=== PATIENT | female | born 2000 | race Caucasian/White ===

== ENCOUNTER 2020-03-30 12:08 | Outpatient (CLI) | payer OTHER, BC, SELFPAY ==
--- NOTE | ~2020-03-30 | XR_ITS ---
EXAMINATION: XR chest 2V DATE: 03/30/2020 12:41 INDICATION: Left chest pain and cough TECHNIQUE: PA and lateral views of the chest are obtained. COMPARISON: 02/16/2014 FINDINGS: The lungs are free of acute opacities. There is no pleural effusion or pneumothorax. The ca rdiomediastinal silhouette is normal. The visualized bones and soft tissues are unremarkable. IMPRESSION: 1. No acute cardiopulmonary abnormality. Reviewed, dictated and finalized at location B.
== END 2020-03-30 12:09 | disposition home or self-care (01) ==
LOC: CHSIMG 12:13
PROVIDERS: PCP Internal Medicine; Visit Provider Internal Medicine
DX: R07.89 Other chest pain (principal); R05 Cough
CPT/HCPCS: 71046

== ENCOUNTER 2022-04-28 13:01 | Emergency (ER) | payer OTHER, SELFPAY ==
[2022-04-28 13:20] VITALS: BP 133/90; PULSE 102; RESP 12; TEMP 37.5; O2SAT 100
--- NOTE | 2022-04-28 13:20 | ED.URI ---
HPI - URI/Sore Throat General Chief Complaint: Ear Stated Complaint: sore throat left ear pain Time Seen by Provider: 04/28/22 13:31 Source: patient and RN notes reviewed Mode of arrival: ambulatory Limitations: no limitations History of Present Illness HPI Narrative: 21-year-old female presents to the [facility] with complaints of sore throat and left ear pain since Monday. Has reported taking 2 COVID test prior to arrival which she reports is negative. Denies any past medical history. Related Data Home Medications Medication Instructions Recorded Confirmed escitalopram oxalate 20 mg tablet 20 mg PO DAILY 04/28/22 04/28/22 montelukast 10 mg tablet 10 mg PO DAILY 04/28/22 04/28/22 Allergies Allergy/AdvReac Type Severity Reaction Status Date / Time No Known Allergies Allergy Verified 04/28/22 13:20 Review of Systems Review of Systems: All systems reviewed & are unremarkable except as noted in HPI and below Constitutional: Constitutional: Reports no additional constitutional complaints, Denies chills and Denies fever(s) Eyes: Eyes: Reports no additional eye complaints ENT: Reports as per HPI, Reports otalgia and Reports sore throat Cardiovascular: Cardiovascular: Reports no additional cardiovascular complaints Respiratory: Respiratory: Reports no additional respiratory complaints Gastrointestinal: Gastrointestinal: Reports no additional gastrointestinal complaints Musculoskeletal: Musculoskeletal: Reports no additional musculoskeletal complaints Integumentary/Breasts: Skin/Breast: Reports system reviewed and no additional complaints, except as docu Neurologic: Reports system reviewed and no additional complaints, except as documented Psychiatric: Psychiatric: Reports no additional psychiatric complaints Allergic/Immunologic: Allergic/Immunologic: Reports no additional allergic/immunologic complaints PMFSH Past Medical History Medical History Patient denies medical problems Surgical History Surgical History (Updated 04/28/22 @ 18:26 by Екатерина Del Rio APRN) No pertinent past surgical history Social History Social History (Updated 04/28/22 @ 18:26 by Екатерина Del Rio APRN) Gender identity (if verbalized by the patient): Female Comments At the time of my signature, I reviewed and agree with the nursing past medical, surgical, social, and family history. There is no relevant family history pertinent to the patient complaint. Exam Const: General: healthy appearing, no acute distress and alert Nutritional Appearance: well nourished Orientation/consciousness: patient oriented x3 Limitations: no limitations HENMT: Head: normal to inspection Ears: external ears normal, TM's normal bilaterally and EAC's normal General nose exam: Normal external nose present and Normal nares present Face and sinus: normal facial exam Mouth: Yes Normal oral and palatal mucosa present, Yes lip normal and Yes moist mucous membranes Throat: posterior oropharynx normal and uvula midline Eyes: General: appearance normal, both eyes and all related structures Conjunctivae: conjunctivae normal Pupils: Equal, round and reactive pupils present Neck: Neck: normal visual inspection, no lymphadenopathy and no meningeal signs Chest: Chest palpation & inspection: normal inspection of the chest Resp: Effort & Inspection: normal respiratory effort and no use of accessory muscles Auscultation: clear to auscultation bilaterally, no crackles, no rales, no rhonchi and no wheezes Cardio: Rate: regular rate Rhythm: regular rhythm Back/Spine/Pelvis: Cervical Spine: normal cervical lordosis Thoracic/Lumbar Spine: thoracic and lumbar spine normal to inspection Skin: General skin exam: normal color Rashes: no rashes Wounds: no wounds Neuro: General: patient oriented x3, moves all extremities, no meningeal signs and no focal motor deficits Cranial nerves: Yes Equal, round a
== END 2022-04-28 13:42 | disposition home or self-care (01) ==
PROVIDERS: Emergency Provider Nurse Practitioner; PCP Internal Medicine
DX: J06.9 Acute upper respiratory infection, unspecified (principal)
CPT/HCPCS: 87081; 87880; 99213; G0463

== ENCOUNTER 2022-09-23 10:08 | Outpatient (CLI) | payer OTHER, SELFPAY ==
[2022-09-23 11:56] LABS: Influenza A QL RT-PCR Negative (Negative); Influenza B QL RT-PCR Negative (Negative); SARS-CoV-2 RNA PCR Positive (Negative)
== END 2022-09-23 10:09 | disposition home or self-care (01) ==
LOC: CHSLAB 10:13
PROVIDERS: PCP Internal Medicine; Visit Provider Nurse Practitioner Family
DX: U07.1 COVID-19 (principal); J06.9 Acute upper respiratory infection, unspecified; J02.9 Acute pharyngitis, unspecified
CPT/HCPCS: 87636

== ENCOUNTER 2022-11-29 13:55 | Outpatient (CLI) | payer OTHER, SELFPAY ==
--- NOTE | ~2022-11-29 | XR_ITS ---
EXAMINATION: XR chest 2V 11/29/2022 14:34 INDICATION: Chest pain. PROCEDURE: 2 view chest COMPARISON: 03/30/2020 FINDINGS: The lungs are clear. The cardiomediastinal silhouette is within normal limits. There are no pleural effusions. There is no pneumothorax suspected. IMPRESSION: 1: NO ACUTE CARDIOPULMONARY DISEASE. Reviewed, dictated and finalized at location A.
[2022-11-29 14:24] LABS: Basophils Absolute Auto 0.05 K/mm3 (0.00-0.10); Basophils Percent Auto 0.5 % (0.0-1.0); Eosinophils Absolute Auto 0.22 K/mm3 (0.02-0.50); Eosinophils Percent Auto 2.3 % (1.0-6.0); Hemoglobin 13.2 g/dL (12.0-15.0); Immature Granulocyte Absolute 0.02 K/mm3 (0.00-0.00); Immature Granulocyte Percent A 0.2 % (0.0-0.0); Lymphocytes Absolute Auto 2.56 K/mm3 (1.10-4.50); Lymphocytes Percent Auto 27.2 % (18.0-42.0); Mean Corpuscular Hemoglobin 28.9 pg (27.0-31.0); Mean Corpuscular Volume 87.7 fL (78.0-102.0); Mean Platelet Volume 9.7 fl (9.2-11.8); Monocytes Absolute Auto 0.76 K/mm3 (0.10-0.90); Monocytes Percent Auto 8.1 % (2.0-11.0); Neutrophils Absolute Auto 5.8 K/mm3 (1.7-7.2); Neutrophils Percent Auto 61.7 % (50.0-70.0); Platelet Count Result 278 K/mm3 (150-420); Red Blood Count 4.56 M/mm3 (4.20-5.40); Red Cell Distribution Width 12.9 % (11.6-14.4); White Blood Count 9.4 K/mm3 (4.8-10.8)
[2022-11-29 14:39] LABS: D Dimer 0.25 mg/L (0.19-0.50)
[2022-11-29 15:08] LABS: Alanine Aminotransferase 21 U/L (14-59); Albumin Level 3.8 g/dL (3.4-5.0); Alkaline Phosphatase 59 U/L (46-116); Amylase 78 U/L (25-115); Anion Gap 9 mmol/L (8-16); Aspartate Amino Transferase 18 U/L (15-37); Bilirubin,Total 0.2 mg/dL (0.00-1.00); Blood Urea Nitrogen 8 mg/dL (7-18); Calcium 8.8 mg/dL (8.5-10.1); Carbon Dioxide 27 mmol/L (21-32); Chloride 107 mmol/L (98-108); Creatine Kinase 35 U/L (26-192); Estimated Glomerular Filt Rate > 60; Glucose 111 mg/dL (70-99); Lipase 45 U/L (16-77); Osmolality Calculated 295 mOsm/kg (285-295); Potassium 3.3 mmol/L (3.5-5.1); Sodium 143 mmol/L (136-145); Total Protein 7.4 g/dL (6.4-8.2)
[2022-11-29 15:09] LABS: CRP < 0.5 mg/dL (0.0-0.9); Troponin I < 4.0 ng/L (0.00-60.4)
== END 2022-11-29 13:56 | disposition home or self-care (01) ==
PROVIDERS: PCP Internal Medicine; Visit Provider Internal Medicine
DX: R07.9 Chest pain, unspecified (principal); R10.9 Unspecified abdominal pain
CPT/HCPCS: 36415; 71046; 80053; 82150; 82550; 82553; 83690; 84484; 85025; 85380; 86140

== ENCOUNTER 2024-08-17 09:04 | Emergency (ER) | payer OTHER, SELFPAY ==
[2024-08-17 09:30] VITALS: BP 112/85; PULSE 98; RESP 18; TEMP 36.9; O2SAT 99
[2024-08-17 09:38] VITALS: BP 115/85; PULSE 98; RESP 18; TEMP 36.9; O2SAT 99
--- NOTE | 2024-08-17 09:54 | ED_ITS ---
HPI - URI/Sore Throat General Chief Complaint: Upper Respiratory Infection Stated Complaint: White Spot in throat Time Seen by Provider: 08/17/24 09:44 Source: patient and RN notes reviewed Mode of arrival: ambulatory Limitations: no limitations History of Present Illness HPI Narrative: Patient presents today complaining of a one-week history of mild sore throat and complex swelling and she noted white spots to the right tonsil last night. She has also had a dry cough, congestion, rhinorrhea. She has tried no lidj-viv-dudjbiw treatment prior to arrival. Related Data Home Medications ?Medication ?Instructions ?Recorded ?Confirmed ?Last Taken ?Type escitalopram oxalate 20 mg tablet 30 mg PO DAILY 11/08/22 Unknown History hydroxyzine HCl 10 mg tablet 10 mg PO TID PRN 11/08/22 Unknown History levonorgestrel 17.5 mcg/24 hr (up 1 device intrauterine ONCE 11/08/22 Unknown History to 5 yrs) 19.5mg intrauterine device (Kyleena) lisdexamfetamine 30 mg capsule 30 mg PO DAILY 11/08/22 Unknown History (Vyvanse) Allergies Allergy/AdvReac Type Severity Reaction Status Date / Time peanut Allergy Intermediate Swelling Verified 08/17/24 09:48 of Lip/Tongue/Throat Review of Systems Review of Systems: CONSTITUTIONAL: Denies body aches, fever, chills, or sweats. EYES: Denies visual changes, redness, or discharge. ENT: Denies otalgia.+ congestion, rhinorrhea, sore throat, tonsil swelling CARDIOVASCULAR: Denies chest pain, palpitations, or edema. RESPIRATORY: Denies dyspnea.+ cough GASTROINTESTINAL: Denies abdominal pain, nausea, vomiting, or diarrhea. GENITOURINARY: Denies dysuria or hematuria. SKIN: Denies rash, itching, or wounds. MUSCULOSKELETAL: Denies back pain, joint pain, or myalgia. NEUROLOGIC: Denies headache, numbness, tingling, or weakness. PSYCH: Denies depression or anxiety. [facility] Past Medical History Medical History Remove/insert IUD Kyleena Encounter for gynecological examination Patient denies medical problems Surgical History Surgical History H/O wisdom tooth extraction No pertinent past surgical history Family History Family History Mother Endometriosis Social History Social History Smoking status: Never smoker Alcohol intake: current Alcohol use details: occasional Substance use: current Substance use type: marijuana Living arrangements: other Additional living arrangements comments: boyfriend Occupation/Education: occupation Additional occupation/education comments: nurse Gender identity (if verbalized by the patient): Female Sexual Orientation (if Verbalized by the Patient): Straight or Heterosexual Comments At time of signature, I have reviewed and agree with nursing past medical, surgical, social and family history unless otherwise noted. Please see nursing chart for further information. There is no relevant family history pertinent to the presenting complaint Exam Narrative: GENERAL: Well-appearing, well-nourished, and in no acute distress. HEAD: Normocephalic, atraumatic. EYES: EOMI. No redness or drainage. Conjunctivae normal. ENT: Mucous membranes pink and moist. Nares clear. No rhinorrhea. TMs normal bilaterally. Throat mildly erythematous. Tonsils 2+ with tonsil stone on the right. Uvula midline. NECK: Normal AROM. Supple. No lymphadenopathy. CHEST: No respiratory distress. Clear to auscultation. HEART: Regular rate and rhythm. No murmur appreciated. EXTREMITIES: Normal range of motion. No edema. SKIN: Warm, dry, no rash. Capillary refill normal. Normal skin turgor. NEURO: No focal deficits. Alert and oriented x3. Gait steady. PSYCH: Normal affect. No signs of depression or anxiety. Course Course Level of Care: Express Care Visit Vital Signs Vital signs: Vital Signs Temperature 98.5 F 08/17/24 09:30 Pulse Rate 98 08/17/24 09:30 Respiratory Rate 18 08/17/24 09:30 Blood Pressure 112/85 08/17/24 09:30 Pulse Oximetry 99 08/17/24 09:30 Temperature 98.5 F 08/17/24 09:38 Pulse Rate 98 08/17/24 09:38 Respiratory Rate 18 08/17/24 09:38 Blood Pressure 115/85 08/17/24 09:38 Pulse Oximetry 99 08/17/24 09:38 Reviewed MDM - URI/Sore Throat MDM Narrative Medical decision making narrative: Rapid strep negative. Culture pending. Symptoms likely viral in etiology. Discussed akqb-ivk-rgciuvc medication use and duration of illness. No prescription medications indicated at this time. Anticipatory guidance given. Differential Diagnosis Differential diagnosis: Likely upper respiratory infection, viral infection, bronchitis, pharyngitis and other (Strep throat) Lab Data Attestation: I reviewed the patient's lab results. Lab results narrative: Rapid strep negative Critical Care Time Critical Care Time Critical Care Time: No Discharge Plan Discharge Clinical Impression: Upper respiratory infection Qualifiers: URI type: unspecified URI Qualified Code(s): J06.9 - Acute upper respiratory infection, unspecified Patient Disposition: Home, Self-Care Condition: Stable Instructions: Upper Respiratory Infection (DC) Additional Instructions: Your rapid strep swab was negative today at [facility]. You will be notified in a few days if the culture comes back positive for strep, and appropriate antibiotics will be called in for you at that time. Your symptoms are likely due to a viral illness, which is not treated with antibiotics. Viral symptoms can be present for up to 7-10 days. Take Tylenol or ibuprofen for fever or pain. Rest and stay hydrated. Follow up with your PCP in 7 days if symptoms are not improving. Go to the ER immediately if you have any difficulty breathing or swallowing. Your blood pressure was elevated above 120/80 today at Urgent Care. This puts you above the threshold for follow up. Please schedule a followup visit with your personal physician as soon as possible, for further evaluation and treatment. Even blood pressure exceeding 120/80 may indicate pre-hypertension. Patient Language: German Prescriptions: No Action escitalopram oxalate 20 mg tablet 30 mg PO DAILY hydroxyzine HCl 10 mg tablet 10 mg PO TID PRN Vyvanse 30 mg capsule 30 mg PO DAILY Kyleena 17.5 mcg/24 hrs (5 yrs) 19.5 mg intrauterine device 1 device intrauterine ONCE Rx Instructions: as a single dose mupirocin 2 % ointment 1 applic topical BID Qty: 22 3RF Rx Instructions: Intranasal Follow-up/Referrals: UNKNOWN,DOCTOR [Primary Care Provider] - Time of Disposition: 09:58
[2024-08-17 10:03] LABS: EDSTREPNEGPOS1 Negative (Negative)
== END 2024-08-17 10:03 | disposition home or self-care (01) ==
PROVIDERS: Emergency Provider Nurse Practitioner
DX: J06.9 Acute upper respiratory infection, unspecified (principal); F12.90 Cannabis use, unspecified, uncomplicated
CPT/HCPCS: 87081; 87880; 99213; G0463

== ENCOUNTER 2024-11-30 07:31 | Outpatient (CLI) | payer OTHER, SELFPAY ==
--- OUTSIDE RECORDS SUMMARY | 2024-11-30 07:36 | XMS_ITS ---
Author Organization [facility] Address [facility] [facility] [address] [place] [address] Care Team Providers Care Pediatrics Physician Name Role Phone Keren Garces MD Primary Care Provider Bernadine Red Unavailable [phone] Social History Sex Assigned At : Social History Observation Description Sex Assigned At Female Encounters Encounter Location Date Provider Diagnosis [facility] [id number] [facility] [address] [place] [address] 09/27/2024 Bernadine Peacock Plan Of Treatment Next Appt Details Provider Name:Bernadine Peacock, 01/16/2025 10:15:00 AM, [address], [facility] [address], [place], [address], Progress Notes * YOGESH GARCÍAHDOB: [birth year] (24 yo F)Acc No.[id number]:09/27/2024 Patient: CORBIN ANGELES :2000 A ge:24 Y S ex:Female Address:[address] [place] [address], [address], [place], [address] * true * Date: Generated for Unrulyi david/Tamica/eTransmitting on: 0 11/30/2024 07:35 AM CDT
--- OUTSIDE RECORDS SUMMARY | 2024-11-30 07:36 | XMS_ITS ---
Author Organization [facility] As [facility] Address [address] [facility] [address] [place] [address] Care Team Providers Care Digital Marketing Analyst Name Role Phone Keren Garces MD Primary Care Provider UnavailBernadine Castro Unavailable [phone] Janet Phillip Unavailable [phone] REASON FOR VISIT new patient Medications Medication SIG (Take, Route, Frequency, Duration) Notes Start Date End Date Status Sertraline HCl 100 MG 1 tablet Oral Once a day for 90 days Active Metoprolol Succinate ER 25 MG Oral 11/27/2023 Not-Taking Pantoprazole Sodium 40 MG Oral 11/27/2023 Not-Taking hydrOXYzine HCl 10 MG Oral 11/27/2023 Not-Taking Sertraline HCl 50 MG TAKE ONE AND ONE-MAYO LF TABLETS BY MOUTH ONCE A DAY for 90 days Active Social History Tobacco Use: Social History Observation Description Date Details (start date - stop date) Never Smoker NA - NA Sex Assigned At : Social History Observation Description Sex Assigned At Female Tobacco Control (Standard) Question Answer Notes Tobacco use: Nonsmoker AUDIT-C (Standard) Question Answer Notes Interpretation Positive Did you have a drink contain ing alcohol in the past year? Yes How often did you have six o r more drinks on one occasion in the past year? Less than monthly (1 point) How many drinks did you have on a typical day when you were drinking in the past year? 3 or 4 drinks (1 point) How often did you have a dri nk containing alcohol in the past year? 2 to 4 times a month (2 points) Problems Problem Type SNOMED Code ICD Code Onset Dates Problem Status W/U Status Risk Notes Problem [id number] ADHD (attention deficit hyperactivity disorder), inattentive type (F90.0) Active confirmed Vital Signs Blood pressure systolic 140 mm Hg 10/30/19 25 Blood pressure diastolic 88 mm Hg 025 Heart Rate 137 /min 10/30/2024 Height 63.00 in 10/30/2024 Height-cm 160.02 cm 10/30/2024 Encounters Encounter Location Date Provider Diagnosis [facility] [address] [facility] [address] [place] [address] 10/30/2024 Janet Phillip Generalized anxiety disorder F41.1 ; Major depressive disorder, recurrent, in remission, unspecified F33.40 and ADHD (attention deficit hyperactivity disorder), inattentive type F90.0 Assessments Encounter Date Diagnosis (ICD Code) Assessment Notes Treatment Notes Treatment Clinical Notes Section Notes 10/30/2024 Generalized anxiety disorder (ICD-10 - F41.1) 10/30/2024 Major depressive disorder, recurrent, in remission, unspecified (ICD-10 - F33.40) 10/30/2024 ADHD (attention deficit hyperactivity disorder), inattentive type (ICD-10 - F90.0) Plan Of Treatment Next Appt Details Follow Up: 3 Weeks, Reason: Provider Name:Bernadine Sherie Peacock, 01/16/2025 10:15:00 AM, [address], [facility] [address], [place], [address], Progress Notes * MIGUEL A GARCÍAOB: [birth year] (24 yo F)Acc No.[id number]:10/30/2024 Patient: CHASTITY ANGELESNAH Provider: Larry PHILLIP LCSW :2000 A ge:24 Y S ex:Female Date:10/30/2024 Address:[address] [place] [id number] Pcp:Keren Garces MD Data: * Time Tracker: * Date Start Time End Time Duration User Type Captured By Mode Notes 10/30/2024 09:47 AM 10:43 AM 00:56:31 Therapist Janet Phillip er * Chief Complaints: * 1 . New patient. 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 ADHD: previously diagnosed- not currently taking meds. Had taken Vyvanse in college Anxiety: ever since I can remember Present since childhood. - not pending doom feeling- Health Anxiety: Really bad health anxiety- chest pain= Heart attack; Nausea = cancer. Reassurance does help.- Obsessed with heart rate. Started last year- approximately one year ago. 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 could have been me --associations and worst case really quickly. Very good at getting breathing under control- no panic, just lingering thoughts. Family system: - just bought a house- no children- doing renovations on the new house. Cognitive: chest hurts- then dying of a heart attack Medical: GI issues - heartburn- arm injury Goals: Deal with stress and anxiety -letting go of tendencies to be hard on self -Polyvagal strategies -CBT. H istory of Presenting Problem: Anxiety w ith excessive worry, which has been long-standing. G eneralized anxiety disorder: Excessive worrying w hich causes distress, which interferes with daily functioning, which is out of proportion to realistic concerns. M willard depressive disorder: Depression started y ears ago, Severity: minimal In remission. * Medical History: P vicki: Generalized anxiety disorder, Recurrent major depression in remission, ,, Past Psychiatric History: Anxiety Disorder,Panic Disorder, abdominal aortic aneurysm: No, chronic fatigue syndrome: No, essential tremor: No, hyperlipidemia: No, hypertension: No, Parkinson's disease: No, restless leg syndrome: No, stroke: No, subdural hematoma: No, type 1 diabetes mellitus: No, type 2 diabetes mellitus: No, vitamin B12 deficiency: No, vitamin D deficiency: No. * Surgical History: O ther 09/23/2021. * Family History: F ather: Anxiety Disorder,Panic Disorder. M aternal Uncle: None. P aternal Aunt: None.?Paternal Uncle: None. M aternal Aunt: Schizoaffective Disorder,Bipolar Disorder,Alcohol Abuse. M other: Anxiety Disorder. P aternal Grandfather: None. P aternal Grandmother: None. M aternal Grandfather: Adopted. M aternal Grandmother: None. S ister: Anxiety Disorder,Panic Disorder,ADHD. * Social History: T obacco Use: T obacco Control (Standard) T obacco use: N onsmoker M igrated Social History: M igrated Social History: Alcohol Intake: Occasional 11/27/2023,Tobacco Years: Never smoker 11/27/2023. D rug/Alcohol: D rugs H ave you used drugs other than those for medical reasons in the past 12 months? N o AUDIT-C (Standard) D id you have a drink containing alcohol in the past year? Y es H ow often did you have six or more drinks on one occasion in the past year? L ess than monthly (1 point) H ow many drinks did you have on a typical day when you were drinking in the past year? 3 or 4 drinks (1 point) H ow often did you have a drink containing alcohol in the past year? 2 to 4 times a month (2 points) I nterpretation P ositive M iscellaneous: O ccupation: Registered nurse. Safety issues A re there any firearms in the house? N o Advance Care Planning A re you your own decision-maker Y es D o you have Power of Rock Loader for Health or Medical? N o S ocial History: H ousehold M arital Status: M arried N umber of Adults in household: 2 N umber of Children in Household: 0 L evel of Education: F inished College * Medications: T aking Sertraline HCl 50 MG Tablet TAKE ONE AND ONE-HALF TABLETS BY MOUTH ONCE A DAY , Taking Sertraline HCl 100 MG Tablet 1 tablet Oral Once a day , Not-Taking Metoprolol Succinate ER 25 MG Tablet Extended Release 24 Hour Oral , Not-Taking hydrOXYzine HCl 10 MG Tablet Oral , Not-Taking Pantoprazole Sodium 40 MG Tablet Delayed Release Oral , Medication List reviewed and reconciled with the patient * Vitals: B P:140/88mm Hg, HR:137/min, Ht: 63.00 in, Ht-cm: 160.02 cm. * Examination: P sychiatry: Appearance: w ell-groomed. Abnormal body movements: n one. Affect / mood: a ppropriate. Attention: g ood. Attitude: c ooperative. Homicidal ideation: n one. Suicidal ideation: n one. Degree of awareness of surroundings: w ithin normal limits.? Delusions: n o. Hallucinations: n o. Insight: g ood. Judgement: g ood. Orientation: a wake, alert and oriented x 3. Perceptual disorders: n o perceptual disorder noted. Psychomotor activity: w ithin normal range. Speech / language: n ormal rate, volume, and articulation (RVR), clear and coherent, appropriate pitch/modulation. Thought content: a ppropriate. Thought process: i ntact. Assessment: * Assessment: 1. G eneralized anxiety disorder - F41.1 (Primary) 2 . M ajor depressive disorder, recurrent, in remission, unspecified - F33.40 3 . A DHD (attention deficit hyperactivity disorder), inattentive type - F90.0 Plan: * Treatment: * Procedure Codes: 9 0791 PSYCHIATRIC DIAGNOSTIC EVALUATION * Follow Up: 3 Weeks * Billing Information: * Visit Code: * Procedure Codes: 90813 PSYCHIATRIC DIAGNOSTIC EVALUATION. * RACY EDUCATION PROFESSOR Sign off status: Completed Signatures: No Ad Hoc Signature Added true * Provider: Larry PHILLIP LCSW Date: 0 10/30/2024 Generated for Ciara hernandez/Tamica/Paul on: 0 11/30/2024 07:36 AM CDT History and Physical Notes * HPI (History of Present Illness) Category Sub-Category Detail Notes Category Notes Major depressive disorder Depression started years ago, Severity: minimal In remission Generalized anxiety disorder Excessive worrying which causes distress, which interferes with daily functioning, which is out of proportion to realistic concerns History of Presenting Problem Anxiety with excessive worry, which has been long-standing Psychotherapy Information 30 October 2024: 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 ADHD: previously diagnosed- not currently taking meds. Had taken Vyvanse in college Anxiety: ever since I can remember Present since childhood. - not pending doom feeling- Health Anxiety: Really bad health anxiety- chest pain= Heart attack; Nausea = cancer. Reassurance does help.- Obsessed with heart rate. Started last year- approximately one year ago. 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 could have been me --associations and worst case really quickly. Very good at getting breathing under control- no panic, just lingering thoughts. Family system: - just bought a house- no children- doing renovations on the new house. Cognitive: chest hurts- then dying of a heart attack Medical: GI issues - heartburn- arm injury Goals: Deal with stress and anxiety -letting go of tendencies to be hard on self -Polyvagal strategies -CBT Examination Category Sub-Category Detail Notes Category Not es Psychiatry Appearance: well-groomed Attitude: cooperative Psychomotor activity: within normal rang e Abnormal body movements: none Attention: good Degree of awareness of surroundings: wit hin normal limits Orientation: awake, alert and doc ented x 3 Affect / mood: appropriate Speech / language: normal rate, volume, and articulation (RVR), clear and coherent, appropriate pitch/modulation Insight: good Judgement: good Thought process: intact Thought content: appropriate Perceptual disorders: no perceptual diso rder noted Suicidal ideation: none Homicidal ideation: none Delusions: no Hallucinations: no
--- OUTSIDE RECORDS SUMMARY | 2024-11-30 07:36 | XMS_ITS | Patient Health Record ---
Author Organization [facility] As [employer] Address [address] [place] [address] Care Team Providers Care Rehabilitation Services Coordinator Name Role Phone Keren Garces MD Primary Care Provider UnavailBernadine Castro Unavailable [phone] Janet Schmidt Unavailable [phone] Migration, Provider Unavailable Unavailable Allergies Allergen (clinical drug ingredient) Drug/Non Drug Allergy documented on EMR Reaction Allergy Type Onset Date Status PEANUT (uncoded) Unknown Allergy 11/27/2023 Ac tive Reason For Referral No Information Medications Medication SIG (Take, Route, Frequency, Duration) [...] Problem Status W/U Status Risk Notes Problem Recurrent major depression (34533119) Major depressive disorder, recurrent, in remission, unspecified (F33.40) Active confirmed Problem Generalized anxiety disorder (09050047) Generalized anxiety disorder (F41.1) Active confirmed Problem [id number] ADHD (attention deficit hyperactivity disorder), inattentive type (F90.0) Active confirmed Vital Signs Heart Rate 137 /min 10/30/2024 Height-cm 160.02 cm 10/30/2024 Blood pressure diastolic 88 mm Hg 10/30/2024 Weight-kg 84.46 kg 10/30/2024 Height 63.00 in 10/30/2024 Blood pressure systolic 140 mm Hg 10/30/2024 Weight 186.2 lbs 10/30/2024 BMI 32.98 kg/m2 10/30/2024 Encounters Encounter Location Date Provider Diagnosis [facility] [employer] [place] [address] [address] 09/27/2024 Bernadine Peacock Generalized anxiety disorder F41.1 and Major depressive disorder, recurrent, in remission, unspecified F33.40 [facility] [employer] [place] [address] [address] 10/30/2024 Bernadien Peacock Generalized anxiety disorder F41.1 and Major depressive disorder, recurrent, in remission, unspecified F33.40 [facility] [employer] [place] [address] [address] 10/30/2024 Janet Schmidt Generalized anxiety disorder F41.1 ; Major depressive disorder, recurrent, in remission, unspecified F33.40 and ADHD (attention deficit hyperactivity disorder), inattentive type F90.0 [facility] [employer] [place] [address] [address] 01/20/2024 Provider Migration [facility] [employer] [place] [address] [address] 01/21/2024 Provider Migration [facility] [email or web address] [address] [address] 02/13/2024 Bernadine Peacock [facility] [email or web address] [address] [address] 02/13/2024 Bernadine Peacock [facility], [facility] [address] [place] [address] 03/29/2024 Bernadine Madonna [facility] [email or web address], [facility] [address] [place] [address] 03/29/2024 Bernadine Madonna [facility] [email or web address], [facility] [address] [place] [address] 04/01/2024 Bernadine Peacock [facility] [email or web address], [facility] [address] [place] [address] 05/20/2024 Bernadine Madonna [facility] [email or web address], [facility] [address] [place] [address] 09/27/2024 Bernadine Peacock Assessments Encounter Date Diagnosis (ICD Code) Assessment Notes Treatment Notes Treatment Clinical Notes Section Notes 09/27/2024 Major depressive disorder, recurrent, in remission, unspecified (ICD-10 - F33.40) 09/27/2024 Generalized anxiety disorder (ICD-10 - F41.1) SSRI/SNRI side effects discussed including but not limited to, gastric upset, nausea, vomiting, diarrhea and/or constipation, weight changes, sexual side effects including loss of libido, increased suicidal thoughts/behavi ors in children and young adults, and serotonin syndrome. 10/30/2024 Generalized anxiety disorder (ICD-10 - F41.1) SSRI/SNRI side effects discussed including but not limited to, gastric upset, nausea, vomiting, diarrhea and/or constipation, weight changes, sexual side effects including loss of libido, increased suicidal thoughts/behavi ors in children and young adults, and serotonin syndrome. 10/30/2024 Major depressive disorder, recurrent, in remission, unspecified (ICD-10 - F33.40) 10/30/2024 Generalized anxiety disorder (ICD-10 - F41.1) 10/30/2024 ADHD (attention deficit hyperactivity disorder), inattentive type (ICD-10 - F90.0) 10/30/2024 Major depressive disorder, recurrent, in remission, unspecified (ICD-10 - F33.40) 09/27/2024 Other Increase sertraline to 100mg daily for anxiety. -consider adding buspar in the future for anxiety Patient educated on all medications including potential benefits, side effects, risks. Educated on proper dosing schedule and importance of compliance. Referred to counseling 10/30/2024 Other Continue sertraline 100mg daily for anxiety. Patient educated on all medications including potential benefits, side effects, risks. Educated on proper dosing schedule and importance of compliance. Scheduled for counseling with Janet -Assessment and treatment plan reviewed with patient. -Compliance with treatment plan importance discussed. -Discussed the risks/benefits of this medication -Discussed medication side effects. -Contact office if symptoms worsen. -Discussed that it can take up to 6-8 weeks to see full therapeutic effects of psychotropic medications. -Crisis prevention hotline 238. Plan Of Treatment Next Appt Details Provider Name:Bernadine Peacock, 01/16/2025 10:15:00 AM, [address] [facility] [address], [facility] [address], [place], [address], Insurance Providers Payer Name Payer Address Payer Phone Subscriber Number Group Number Insured Name Patient Relationship to Insured Coverage Start Date Coverage End Date [facility] [address] [address] [place] [address] [id number] CORBIN GARCÍA Self - patient is the insured Medical (General) History Medical History History ICD Code Problems: Generalized anxiety disorder Recurrent major depression in remission , Past Psychiatric History: Anxiety Disord er,Panic Disorder abdominal aortic aneurysm: No chronic fatigue syndrome: No essential tremor: No hyperlipidemia: No hypertension: No Parkinson's disease: No restless leg syndrome: No stroke: No subdural hematoma: No type 1 diabetes mellitus: No type 2 diabetes mellitus: No vitamin B12 deficiency: No vitamin D deficiency: No Surgical History Surgery Date(Month/Year) Other 09/23/2021
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
[2024-11-30 08:30] LABS: Basophils Absolute Auto 0.1 K/mm3 (0.0-0.1); Basophils Percent Auto 0.9 % (0.2-1.2); Eosinophils Absolute Auto 0.2 K/mm3 (0-0.3); Eosinophils Percent Auto 2.7 % (0-4.4); Hematocrit 42.1 % (37.0-47.0); Hemoglobin 13.8 g/dL (12.0-15.0); Immature Granulocyte Absolute 0.02 K/mm3 (0.00-0.031); Immature Granulocyte Percent A 0.2 % (0-0.5); Lymphocytes Absolute Auto 2.57 K/mm3 (0.9-3.2); Mean Corpuscular HGB Conc 32.8 g/dl (32-36); Mean Corpuscular Hemoglobin 28.9 pg (26-34); Mean Corpuscular Volume 88.3 fl (80-100); Mean Platelet Volume 10.1 fl (7.4-10.4); Monocytes Absolute Auto 0.7 K/mm3 (0.1-0.6); Monocytes Percent Auto 8.5 % (2.6-8.5); Neutrophils Absolute Auto 4.5 K/mm3 (1.3-6.7); Neutrophils Percent Auto 55.7 % (45.5-73.1); Platelet Count Result 283 k/mm3 (150-375); Red Blood Count 4.77 M/mm3 (4.2-5.4); Red Cell Distribution Width 13.2 % (11.5-14.5)
[2024-11-30 08:41] LABS: Alanine Aminotransferase 36 U/L (6-35); Albumin Level 4.3 g/dL (3.5-5.1); Alkaline Phosphatase 69 U/L (38-126); Anion Gap 9 mmol/L (4-12); Aspartate Amino Transferase 30 U/L (14-36); Bilirubin,Total 0.4 mg/dL (0.2-1.3); Blood Urea Nitrogen 13 mg/dL (7-17); Carbon Dioxide 24 mmol/L (22-30); Chloride 105 mmol/L (98-107); Cholesterol 168 mg/dL (0-200); Estimated Glomerular Filt Rate > 60; Glucose 99 mg/dL (65-110); HDL Direct 50 mg/dL; Potassium 3.6 mmol/L (3.4-5.0); Sodium 138 mmol/L (137-145); Triglycerides 84 mg/dL (<150)
[2024-11-30 08:52] LABS: LDL Cholesterol Direct 91 mg/dL
[2024-11-30 09:21] LABS: Free T4 Free Thyroxine 1.26 ng/dL (0.78-2.19); Vitamin D 25 Hydroxy 54.8 ng/mL
[2024-11-30 09:23] LABS: Hemoglobin A1C 5.4 % (<5.7)
== END 2024-11-30 07:32 | disposition home or self-care (01) ==
LOC: ANHLAB 07:34
PROVIDERS: PCP Family Medicine; Visit Provider Student in an Organized Health Care Education/Training Program
DX: R53.83 Other fatigue (principal); Z00.00 Encounter for general adult medical examination without abnormal findings; E55.9 Vitamin D deficiency, unspecified; Z13.1 Encounter for screening for diabetes mellitus
CPT/HCPCS: 36415; 80053; 80061; 82306; 83036; 84439; 84443; 85025

== ENCOUNTER 2025-03-20 07:51 | Outpatient (CLI) | payer OTHER, SELFPAY ==
--- NOTE | ~2025-03-20 | US_ITS ---
Limited Abdominal Sonogram: Real-time sonographic imaging of the right upper quadrant was performed. Clinical History: Right upper quadrant pain Findings: The liver appears normal with no evidence of mass lesion or bile duct dilatation. Main por teresa vein demonstrates normal direction of flow. The gallbladder is well distended, and appears normal with no evidence of gallstone or wall thickening. The common bile duct measures 3 mm. The visualize d pancreas, aorta, and IVC are unremarkable. Right kidney unremarkable. Impression: No significant abnormality seen. Reviewed, dictated and finalized at location M. Impression: No significant abnormality seen.
== END 2025-03-20 07:52 | disposition home or self-care (01) ==
LOC: MICIMG 07:52
PROVIDERS: PCP Family Medicine; Visit Provider Student in an Organized Health Care Education/Training Program
DX: R10.11 Right upper quadrant pain (principal)
CPT/HCPCS: 76705

== ENCOUNTER 2025-04-29 10:25 | Outpatient (CLI) | payer OTHER, SELFPAY ==
--- OUTSIDE RECORDS SUMMARY | 2025-04-29 10:56 | XMS_ITS | Clinical Summary ---
Author Organization [facility] Address [address] [place] [address] Care Team Providers Care Truck Loader Name Role Phone Hodan Waggoner MD Unavailable Jean Marie Jones MD Unavailable [phone] Keren Garces MD Primary Care Provider [phone] Source Comments [facility],non-owned Affiliates and Associated Physician Practices is amultiple site organization consisting of ambulatory clinics and hospital sitesin [place], [place], [place] and [place]. This disclosure is being madepursuant to the Care Everywhere program and may not contain all information available regarding this patient. Last updated 18.[facility] Allergies Active Allergy Reactions Criticality Noted Date Comments Peanut-Derived Itching 12/05/2022 Itchy throat, vomiting Medications * Be aware that medications may not be up to date on this document. Alwaysverify current medications with the patient. sertraline (Zoloft) 25 MG tablet Take 4 (four) tablets by mouth once daily 08/23/2023 Active metoprolol succinate XL 24hr (Toprol XL) 25 MG tablet Take 1 (one) tablet by mouth once daily 90 tablet 3 09/20/2023 Active Active Problems Problem Noted Date Diagnosed Date Other chest pain 12/06/2022 Inappropriate sinus tachycardia 06/13/2017 Asthma, exercise induced 04/22/2016 Attention deficit hyperactivity disorder (ADHD) 09/15/2012 Resolved Problems Problem Noted Date Diagnosed Date Resolved Date Attention deficit hyperactiv ity disorder (ADHD) 08/27/2013 01/29/2015 Immunizations Immunization Administration Dates Next Due INFLUENZA VACCINE, TRIV. (AF LURIA, FLUZONE TRIVALENT; 6MO+) (IIV3) 07/15/2010,08/10/2009 DTaP VACCINE IM (6wk-6yrs) 01/02/2004,,1998,10/15,1998 HEP A PEDS 2 DOSE 03/15/2013,02/16/2010 HEP B VACCINE, PED/ADOL 03/17/1999,1998, HIB BOOSTER 12/15/1999, 9,1998,08/13 Human Papilloma Virus Joana valent Vaccine 09/06/2010,04/20/2010,02/16/2010 INFLUENZA VACCINE 06/06/2011 INFLUENZA VACCINE, QUADR. (F LUZONE; FLULAVAL; FLUARIX; AFLURIA QUADRIVALENT; 6MO+), 0.5 ML (IIV4) 06/11/2020,06/17/2019,06/04/2018,06/13 MENINGOCOCCAL ACWY (MCV4P) VAC IM 04/16/2015,08/2013,02/16/2010 MENINGOCOCCAL B RECOMBINANT, 2 OR 3 DOSE, IM 04/15/2019 MMR 01/02/2004,06/09/1999 POLIO IPV 01/02/2004,1998,1998 POLIO OPV 1998 PPD 01/02/2004,06/09/1999 TDAP (7yrs+) 02/16/2010 VARICELLA 02/16/2010,1998 Social History Tobacco Use Types Packs/Day Years Used Date Smoking Tobacco: Never Passive Smoke Exposure: Never Smokeless Tobacco: Never Tobacco Cessation:Counseling Given: Not Answered Alcohol Use Standard Drinks/Week Comments Yes 0 (1 standard drink = 0.6 oz pur e alcohol) PHQ-2 Answer Date Recorded Patient Health Questionnaire-2 Score 0 09/20/2023 Comments No Sex and Gender Information Value Date Recorded Sex Assigned at Not on file Legal Sex Female 5:42 AM FELT TIPPING MACHINE TENDER Gender Identity Not on file Sexual Orientation Not on file Last Filed Vital Signs Vital Sign Reading Time Taken Comments Blood Pressure 118/76 10/04/2024 12:39 PM FELT TIPPING MACHINE TENDER Pulse 114 10/04/2024 12:39 PM FELT TIPPING MACHINE TENDER Temperature 36.7 C (98 F) 10/04/2024 12:39 PM FELT TIPPING MACHINE TENDER Respiratory Rate 20 07/22/2023 10:31 AM FELT TIPPING MACHINE TENDER Oxygen Saturation 98% 09/20/2023 8:43 AM FELT TIPPING MACHINE TENDER Inhaled Oxygen Concentration - - Weight 85.3 kg (188 lb) 10/04/2024 12:39 PM FELT TIPPING MACHINE TENDER Height 160 cm (5' 3) 07/22/2023 9:39 AM FELT TIPPING MACHINE TENDER Body Mass Index 33.3 07/22/2023 9:39 AM FELT TIPPING MACHINE TENDER Plan of Treatment Upcoming Encounters Date Type Department Care Team (Late st Contact Info) Description 10/03/2025 12:30 PM FELT TIPPING MACHINE TENDER Office Visit [facility] [address] [place] [address] [address] [place] [address] Jean Marie Jones MD [address] [place] [address] [address] [place] [address] Health Maintenance Due Date Last Done Comments HIV SCREENING 2013 HEPATITIS C SCREENING 06/03/2016 PNEUMOCOCCAL VACCINE (1 of 2 - PCV) 2017 PAP SMEAR 2019 MENINGOCOCCAL (Group B) VACC INE SHARED DECISION-MAKING (2 of 2 - Trumenba SCDM 2-dose series) 10/16/2019 04/15/2019 DTAP/TDAP/TD VACCINES (7 - T d or Tdap) 02/17/2020 02/16/2010, 01/02/2004, 12/15/1999, Additional history exists COVID-19 VACCINE (2023-2 5 season) 2024 07/21/2021, 10/03/2020, 09/05/2020 DEPRESSION SCREENING 09/04/2024 09/20/2023, 12/07/19 23 INFLUENZA VACCINE (#1) 2025 , 06/17/2019, 06/04/2018, Additional history exists ZOSTER VACCINE (1 of 2) 2048 HEPATITIS B VACCINE Completed 03/17/1999, 1998, 1998 HIB VACCINE Completed 12/15/1999, 12/03, 1998, Additional history exists HPV VACCINE Completed 09/06/2010, 04/04, 02/16/2010 MENINGOCOCCAL GROUPS A/C/Y/W VACCINE Completed 04/16/2015, 03/15/2013, 02/16/2010 Goals Goal Patient Goal Type Associated Problems Recent Progress Patient-Stated? Author Use safety retraint in car Lifestyle On track( 019 9:47 AM FELT TIPPING MACHINE TENDER) Mela Joshua, MARANDA Insurance [facility] [place] [address] Care Teams Truck Loader Relationship Specialty Start Date End Date Hodan Waggoner MD PCP - Pediatrics 08/10/09 Keren Garces MD [address] [place] [address] PCP - General Family Medicine 10/04/24 Jean Marie Jones MD [address] [address] Cardiology 12/06/22
--- OUTSIDE RECORDS SUMMARY | 2025-04-29 10:56 | XMS_ITS | Encounter Summary ---
Author Organization [facility] Address [address] [place], [place] [address] [address] Care Team Providers Care Pile Driving Technician Name Role Phone Hodan Waggoner MD Unavailable Mindi Shearer MD Primary Care Provider [phone] Jose Guzmán MD Primary Care Provider [phone] Jean Marie Jones MD Unavailable [phone] Keren Garces MD Primary Care Provider [phone] Encounter Details Date Type Department Care Team (Late Contact Info) Description 03/22/2016 [facility] Outpatient Visit [facility] Medical [facility] - Pediatrics [address] [place] [phone] Mindi Shearer MD [address] [place] [phone] Social History Tobacco Use Types Packs/Day Years Used Date Smoking Tobacco: Never Smokeless Tobacco: Never Alcohol Use Standard Drinks/Week Comments Not Asked 0 (1 standard drink = 0.6 oz pur e alcohol) Comments No Sex and Gender Information Value Date Recorded Sex Assigned at Not on file Legal Sex Female 5:42 AM WOUND/OSTOMY NURSE Gender Identity Not on file Sexual Orientation Not on file documented as of this encounter Plan of Treatment Upcoming Encounters Date Type Department Care Team (Late st Contact Info) Description 10/03/2025 12:30 PM WOUND/OSTOMY NURSE Office Visit [facility] Health Heart & Vascular Care [address] [place], [place] [id number] Jean Marie Jones MD [address] [place] [address] documented as of this encounter Goals Goal Patient Goal Type Associated Problems Recent Progress Patient-Stated? Author Use safety retraint in car Lifestyle On track( 019 9:47 AM WOUND/OSTOMY NURSE) Mela Joshua, RN documented as of this encounter Visit Diagnoses Not on filedocumented in this encounter Care Teams Pile Driving Technician Relationship Specialty Start Date End Date Hodan Waggoner MD PCP - Pediatrics 08/10/09 Mindi Shearer MD PCP - General Pediatrics 03/04/14 12/04/22 Jose Guzmán MD [address] [place], [place] [id number] PCP - General Internal Medicine 12/05/22 10/03/24 Keren Garces MD [address] [place] [address] PCP - General Family Medicine 10/04/24 Jean Marie Jones MD [address] [place] [address] Cardiology 12/06/22 documented as of this encounter
[2025-04-29 10:59] LABS: Hematocrit 41.2 % (37.0-47.0); Hemoglobin 13.5 g/dL (12.0-15.0); Mean Corpuscular HGB Conc 32.8 g/dl (32-36); Mean Corpuscular Hemoglobin 28.7 pg (26-34); Mean Corpuscular Volume 87.5 fl (80-100); Platelet Count Result 240 k/mm3 (150-375); Red Blood Count 4.71 M/mm3 (4.2-5.4); White Blood Count 7.1 K/mm3 (4.5-10.0)
[2025-04-29 11:47] LABS: Syphilis IgG/IgM Antibody Non-Reactive (Nonreactive)
[2025-04-29 11:52] LABS: Hepatitis B Surface Antigen Negative (Negative)
[2025-04-29 11:59] LABS: HIV 1/2 Ab P24 Ag Result Negative (Negative)
[2025-04-29 12:27] LABS: Beta HCG Quantitative 53926.00 mIU/ML
[2025-04-30 07:09] LABS: Cytomegalovirus (CMV) Ab, IgG <0.60 U/mL (0.00-0.59)
[2025-04-30 15:09] LABS: Varicella-Zoster Ab, IgG Reactive (Non Reactive); Varicella-Zoster Ab, IgM <0.91 index (0.00-0.90)
[2025-05-02 13:08] LABS: Parvovirus B19, IgG 5.2 index (0.0-0.8); Parvovirus B19, IgM 0.4 index (0.0-0.8)
== END 2025-04-29 10:26 | disposition home or self-care (01) ==
PROVIDERS: PCP Family Medicine; Visit Provider Student in an Organized Health Care Education/Training Program
DX: N91.2 Amenorrhea, unspecified (principal)
CPT/HCPCS: 36415; 84702; 85027; 86593; 86644; 86703; 86747; 86762; 86787; 86850; 86900; 86901; 87086; 87340; G0432

== ENCOUNTER 2025-05-07 14:10 | Outpatient (CLI) | payer OTHER, SELFPAY ==
--- NOTE | ~2025-05-07 | US_ITS ---
EXAMINATION: US OB <=14 wk fetus w TV DATE: 05/07/2025 14:40 INDICATION: Amenorrhea. Assess viability and dating of during first trimester. TECHNIQUE: Real-time pelvic ultrasound utilizing both a transvaginal and transabdominal probe was performed. The interpreting radiologist was not present for the study. COMPARISON: None. FINDINGS: The uterus measures 8.8 x 5.3 x 6.6 cm. There is an intrauterine gestational sac. A yolk sac and pole are identified. The crown rump length measures 1.6 cm, which correlates with an estimated gestational age of 8 weeks and 0 days. heart motion is identified measuring 157 beats per minute (bpm) by M-mode Doppler. The right ovary is not definitively identified. The left ovary measures 2.8 x 2.7 x 3.1 cm. 1.6 cm anechoic likely corpus luteum cyst in the left ovary. There is no free fluid in the pelvis. IMPRESSION: 1. Single living fetus with heart rate of 157 bpm. 2. Gestational age by ultrasound of 8 weeks 0 day(s) +/- 5 day(s) with ultrasound estimated date of delivery (JAYSON) of 12/17/2025. Reviewed, dictated and finalized at location A. IMPRESSION: 1. Single living fetus with heart rate of 157 bpm. 2. Gestational age by ultrasound of 8 weeks 0 day(s) +/- 5 day(s) with ultraso und estimated date of delivery (JAYSON) of 12/17/2025.
== END 2025-05-07 14:11 | disposition home or self-care (01) ==
LOC: MICIMG 14:12
PROVIDERS: PCP Student in an Organized Health Care Education/Training Program; Visit Provider Obstetrics & Gynecology
DX: N91.2 Amenorrhea, unspecified (principal); Z3A.08 8 weeks gestation of pregnancy
CPT/HCPCS: 76801; 76817

== ENCOUNTER 2025-06-09 09:22 | Outpatient (CLI) | payer OTHER, SELFPAY ==
--- OUTSIDE RECORDS SUMMARY | 2025-06-09 10:25 | XMS_ITS | Patient Health Record ---
Author Organization [facility] Address [address] [place] [address] Care Team Providers Care Casting Trucker Name Role Phone Keren Garces MD Primary Care Provider UnavailBernadine Sweeney Unavailable [phone] Janet Schmidt Unavailable [phone] Allergies Allergen (clinical drug ingredient) Drug/Non Drug Allergy documented on EMR Reaction Allergy Type Onset Date Status Peanut PEANUT (uncoded) Unknown Allergy 11/27/2023 Ac tive Reason For Referral No Information Medications Medication SIG (Take, Route, Frequency, Duration) Notes Start Date End Date Status Sertraline HCl 100 MG Tablet 1 tablet Oral Once a day; Duration: 90 days Active Sertraline HCl 100 MG Tablet 1 tablet Oral Once a day; Duration: 90 days PLEASE FILL EARLY, PT OUT OF MEDICATION Active Social History Tobacco Use: Social History Observation Description Date Details (start date - stop date) Never Smoker NA - NA Sex Assigned At : Social History Observation Description Sex Assigned At Female Social History Miscellaneous: Social Info Question Answer Notes Advance Care Planning Are you your own decision-maker Yes Do you have Power of Commanding Officer Motorized Squad for Health or Medi quin[place]? No Safety issues: Are there any firearms in the house? No Social History Social Info Question Answer Notes Household: Marital Status: Number of Adults in household: 2 Number of Children in Household: 0 Level of Education: Finished College Drug/Alcohol: Social Info Question Answer Notes Drugs Have you used drugs other than those for medical reasons in the past 12 months? No AUDIT-C (Standard) Interpretation Positive Did you have a drink contain ing alcohol in the past year? Yes How often did you have six or more drinks on one occasion in the past year? Less than monthly (1 point) How many drinks did you have on a typical day when you were drinking in the past year? 3 or 4 drinks (1 point) How often did you have a drink containing alcohol in the past year? 2 to 4 times a month (2 points) Tobacco Use: Social Info Question Answer Notes Tobacco Control (Standard) Tobacco use: Nonsmoker Additional Details Category Social Info Options Details Miscellaneous: Occupation: Registered nu [employer] Migrated Social History Migrated Social History Alcohol Intake: Occasional 11/27/2023,Tobacco Years: Never smoker 11/27/2023 Problems Problem Type SNOMED Code ICD Code Onset Dates Problem Status W/U Status Risk Notes Problem Recurrent major depression (50691173) Major depressive disorder, recurrent, in remission, unspecified (F33.40) Active confirmed Problem Generalized anxiety disorder (88436480) Generalized anxiety disorder (F41.1) Active confirmed Problem Attention deficit hyperactivity disorder, 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), inattentive type (F90.0) Active confirmed Vital Signs Heart Rate 116 /min 01/16/2025 Height-cm 160.02 cm 01/16/2025 Blood pressure diastolic 89 mm Hg 01/16/2025 Weight-kg 84.82 kg 01/16/2025 Height 63.00 in 01/16/2025 Blood pressure systolic 123 mm Hg 01/16/2025 Weight 187 lbs 01/16/2025 BMI 33.12 kg/m2 01/16/2025 Encounters Encounter Location Date Provider Diagnosis [facility] [address] [address] 09/27/2024 Bernadine Kurilla Generalized anxiety disorder F41.1 and Major depressive disorder, recurrent, in remission, unspecified F33.40 [employer] [place] [address] [address] 10/30/2024 Bernadine Kurilla Generalized anxiety disorder F41.1 and Major depressive disorder, recurrent, in remission, unspecified F33.40 [facility] [employer] [place] [address] [address] 10/30/2024 Janet Schmidt Generalized anxiety disorder F41.1 ; Major depressive disorder, recurrent, in remission, unspecified F33.40 and ADHD (attention deficit hyperactivity disorder), inattentive type F90.0 [place] [address] [facility] [address] [place] [address] 01/16/2025 Bernadine Brown Generalized anxiety disorder F41.1 ; Major depressive disorder, recurrent, in remission, unspecified F33.40 ; Encounter for screening for cardiovascular disorders Z13.6 and Negative depression screening Z13.31 [place] [address] [facility] [address] [place] [address] 05/27/2025 Bernadine Brown [place] [address] [facility] [address] [place] [address] 09/27/2024 Bernadine Brown [place] [address] [address] [facility] [address] [facility] [address] [place] [address] 03/23/2025 Bernadine Brown Generalized anxiety disorder F41.1 [place] [address] [address] [facility] [address] [facility] [address] [place] [address] 03/23/2025 Bernadine Brown [place] [address] [address] [facility] [address] [address] 03/23/2025 Bernadine Brown Assessments Encounter Date Diagnosis (ICD Code) Assessment [...] 10/30/2024 Generalized anxiety disorder (ICD-10 - F41.1) 01/16/2025 Major depressive disorder, recurrent, in remission, unspecified (ICD-10 - F33.40) 01/16/2025 Generalized anxiety disorder (ICD-10 - F41.1) SSRI/SNRI side effects discussed including but not limited to, gastric upset, nausea, vomiting, diarrhea and/or constipation, weight changes, sexual side effects including loss of libido, increased suicidal thoughts/behavi ors in children and young adults, and serotonin syndrome. 03/23/2025 Generalized anxiety disorder (ICD-10 - F41.1) 01/16/2025 Encounter for screening for cardiovascular disorders (ICD-10 - Z13.6) 10/30/2024 ADHD (attention deficit hyperactivity disorder), inattentive type (ICD-10 - F90.0) 10/30/2024 Major depressive disorder, recurrent, in remission, unspecified (ICD-10 - F33.40) 01/16/2025 Negative depression screening (ICD-10 - Z13.31) 09/27/2024 Other Increase sertraline to 100mg daily [...] of psychotropic medications. -Crisis prevention hotline 988. 01/16/2025 Other Stable on current medication regimen, continue at current doses. -Refills sent in today -No concerns today Patient educated on all medications including potential benefits, side effects, risks. Educated on proper dosing schedule and importance of compliance. -Assessment and treatment plan reviewed with patient. -Compliance with treatment plan importance discussed. -Discussed the risks/benefits of this medication -Discussed medication side effects. -Contact office if symptoms worsen. -Discussed that it can take up to 6-8 weeks to see full therapeutic effects of psychotropic medications. -Crisis prevention hotline 988. Plan Of Treatment No Information Insurance Providers Payer Name Payer Address Payer Phone Subscriber Number Group Number Insured Name Patient Relationship to Insured Coverage Start Date Coverage End Date Umr [address] [address] [place] [address] [id number] CORBIN GARCÍA Self - patient is the [...]
== END 2025-06-09 09:23 | disposition home or self-care (01) ==
LOC: ANHLAB 09:33
PROVIDERS: PCP Student in an Organized Health Care Education/Training Program; Visit Provider Student in an Organized Health Care Education/Training Program
DX: Z34.90 Encounter for supervision of normal pregnancy, unspecified, unspecified trimester (principal); Z3A.00 Weeks of gestation of pregnancy not specified
CPT/HCPCS: 81420

== ENCOUNTER 2025-08-04 09:51 | Outpatient (CLI) | payer OTHER, SELFPAY ==
--- NOTE | ~2025-08-04 | US_ITS ---
EXAMINATION: US OB /maternal detail DATE: 08/04/2025 10:45 INDICATION: survey TECHNIQUE: Multiple obstetric sonographic images performed. FINDINGS: No prior studies for comparison. There is a single living fetus in vertex presentation. The placenta is anterior without placenta previa. Placental margin 3.9 cm from the cervix. Cervical length 4.1 cm. Amniotic fluid volume is subjectively normal. cardiac activity and movement is noted with a heart rate of 148 beats per minute. The following anatomy was identified as normal: 4 chamber heart 3 vessel cord cord insertion kidneys urinary bladder stomach spine diaphragm ventricles cisterna magna cerebellum The following biometric data were obtained: BPD: 51mm corresponds to gestational age 21 weeks 3 days. Head circumference: 187 mm corresponds to gestational age 21 weeks 0 days. Abdominal circumference: 159 mm corresponds to gestational age 21 weeks 0 days. Femur length: 32 mm corresponds to gestational age 20 weeks 0 days. Head circumference to abdominal circumference ratio: 1.08 (normal range for expected gestational age is 1.06-1.25). Estimated weight: 368 grams +/- 55 grams using Hadlock method. IMPRESSION: 1: Single living intrauterine with an estimated gestational age of 20weeks 5days by initial ultrasound measurements, with an EDC of 12/17/2025 in vertex presentation. 2. Normal survey. Reviewed, dictated and finalized at location I. AVER JEWELRY IMPRESSION: 1: Single living intrauterine with an estimated gestational age of 20 weeks 5days by initial ultrasound measurements, with an EDC of 12/17/2025 in suly sudeep presentation. 2. Normal survey.
== END 2025-08-04 09:52 | disposition home or self-care (01) ==
LOC: MICIMG 09:52
PROVIDERS: PCP Student in an Organized Health Care Education/Training Program; Visit Provider Obstetrics & Gynecology
DX: Z34.90 Encounter for supervision of normal pregnancy, unspecified, unspecified trimester (principal)
CPT/HCPCS: 76805

== ENCOUNTER 2025-08-07 16:18 | Outpatient (CLI) | payer OTHER, SELFPAY ==
[2025-08-12 19:08] LABS: Calprotectin, Fecal 5 ug/g (0-120)
== END 2025-08-07 16:19 | disposition home or self-care (01) ==
LOC: ANHLAB 16:19
PROVIDERS: PCP Student in an Organized Health Care Education/Training Program; Visit Provider Nurse Practitioner Family
DX: O99.619 Diseases of the digestive system complicating pregnancy, unspecified trimester (principal); K92.89 Other specified diseases of the digestive system; Z83.79 Family history of other diseases of the digestive system; Z3A.00 Weeks of gestation of pregnancy not specified
CPT/HCPCS: 83993

== ENCOUNTER 2025-08-11 09:36 | Emergency (ER) | payer OTHER, SELFPAY ==
[2025-08-11] VITALS (11 sets, daily range): BP systolic 109–139; BP diastolic 79–95; PULSE 97–160; RESP 14–30; O2SAT 99–100
--- NOTE | 2025-08-11 09:38 | ECG_ITS ---
Test Date: 2025-08-11 09:40:24 Measurements Intervals [place] Rate: 169 P: 0 MO: 0 QRS: 56 QRSD: 69 T: 33 QT: 274 QTc: 461 Interpretive Statements SINUS TACHYCARDIA BORDERLINE R WAVE PROGRESSION, ANTERIOR LEADS BASELINE ARTIFACT- I, II, III, AVR, AVL ABNORMAL ECG No previous ECG available for comparison Electronically Signed On 08-11-2025 11:11:18 TERMINAL MAKE UP OPERATOR by Nagi Reed D.O.
[2025-08-11] MEDS: LACTATED RINGERS 1,000 ML 999 ML IV CONT ×2 (10:03→12:07)
[2025-08-11 10:08] LABS: Hematocrit 37.4 % (37.0-47.0); Hemoglobin 12.3 g/dL (12.0-15.0); Immature Granulocyte Percent A 0.7 % (0-0.5); Lymphocytes Absolute Auto 2.49 K/mm3 (0.9-3.2); Mean Corpuscular HGB Conc 32.9 g/dl (32-36); Mean Corpuscular Hemoglobin 28.7 pg (26-34); Mean Corpuscular Volume 87.4 fl (80-100); Nucleated Red Blood Cells Absolute Auto 0.000 K/mm3 (0.0-0.012); Nucleated Red Blood Cells Perc 0.0 % (0.0-0.2); Platelet Count Result 263 k/mm3 (150-375); Red Blood Count 4.28 M/mm3 (4.2-5.4); White Blood Count 10.2 K/mm3 (4.5-10.0)
[2025-08-11 10:18] LABS: INR 1.0; Prothrombin Time 13.1 Seconds (11.1-14.7)
--- NOTE | 2025-08-11 10:18 | PC.NURSE ---
This RN called OB for assistance with heart tone assessment due to our departments being unavailable.
[2025-08-11 10:19] LABS: Partial Thromboplastin Time 24.2 Seconds (22.3-36.8)
[2025-08-11 10:34] LABS: Alanine Aminotransferase 31 U/L (6-35); Albumin Level 3.9 g/dL (3.5-5.1); Alkaline Phosphatase 61 U/L (38-126); Anion Gap 7 mmol/L (4-12); Aspartate Amino Transferase 34 U/L (14-36); Bilirubin,Total 0.3 mg/dL (0.2-1.3); Blood Urea Nitrogen 9 mg/dL (7-17); Calcium 9.1 mg/dL (8.4-10.2); Carbon Dioxide 20 mmol/L (22-30); Chloride 107 mmol/L (98-107); Estimated CRCL calculation 116 ml/min; Estimated Glomerular Filt Rate > 60; Glucose 103 mg/dL (65-110); Magnesium 1.5 mg/dL (1.6-2.3); Potassium 3.0 mmol/L (3.4-5.0); Sodium 134 mmol/L (137-145); Total Protein 7.2 g/dL (6.3-8.2)
[2025-08-11] MEDS: POTASSIUM CHLORIDE 20 MEQ ER TABLET 40 MEQ PO (11:00)
[2025-08-11] MEDS: MAGNESIUM SULF 4 GM/WATER100ML 4 GM/100 ML BAG IVPB (11:01)
[2025-08-11 11:05] LABS: Thyroid Stimulating Hormone Reflex 2.760 uIU/mL (0.465-4.68)
[2025-08-11 11:20] LABS: Add Urine Microscopic? YES; Appearance Urine Clear (Clear); Glucose Urine UA Negative (Negative); Leukocyte Esterase Ur Trace LEU/UL (Negative); Need Manual Microscopic Reviewed; Nitrate Urine Negative (Negative); Non Pathogenic Casts 0-2; Specific Grav Ur 1.009 (1.001-1.035)
--- NOTE | 2025-08-11 12:15 | ED_ITS ---
HPI - Arrhythmia/Palpitations General Chief Complaint: Arrhythmia/Palpitations Stated Complaint: HEART PALPATATIONS 21WKS PREG Time Seen by Provider: 08/11/25 09:51 Source: patient, RN notes reviewed and old records reviewed Mode of arrival: EMS History of Present Illness HPI narrative: This is a 25 year female approximately 21 weeks who presents for evaluation of rapid heart rate. She reports history of inappropriate tachycardia syndrome and she follows with a hospice music therapy. She states she was taken off metoprolol by her hospice music therapy a while ago due to continued tachycardia intermittently. She states today she noticed that her heart rate was 130 when she was walking. She denies chest pain, nausea, vomiting. She reports intermittent shortness of breath with her . She states heart rate will increase like this from time to time. She denies any reason for dehydration . She also reports good movement Related Data Home Medications ?Medication ?Instructions ?Recorded ?Confirmed ?Last Taken ?Type sertraline 50 mg tablet 100 mg PO 11/25/24 07/17/25 Unknown History vits no.126-ferrous fum tablet PO 04/29/25 Unknown History 28 mg iron-folic acid 800 mcg tablet (Classic ) aspirin 81 mg tablet 81 mg PO DAILY 07/07/2507/05 Unknown History famotidine 20 mg tablet 20 mg PO DAILY 07/07/2507/05 Unknown History Allergies Allergy/AdvReac Type Severity Reaction Status Date / Time peanut Allergy Intermediate Swelling Verified 08/11/25 09:38 of Lip/Tongue/Throat PMFSH Past Medical History Medical History Dyspepsia Family history of Crohn's disease Encounter for removal and reinsertion of intrauterine contraceptive device Anxiety ADD (attention deficit disorder) Remove/insert IUD Kyleena Encounter for gynecological examination Patient denies medical problems Surgical History Surgical History H/O wisdom tooth extraction No pertinent past surgical history Family History Family History Mother Endometriosis Social History Social History Smoking status: Never smoker Alcohol intake: current Alcohol use details: occasional Substance use: current Substance use type: marijuana Lack of Transportation: No Lack of Food: Never True Current Housing: Decline to Answer Concerned About Future Housing: Decline to Answer Difficulty Paying Gas/Electric Bills: Decline to Answer Difficulty Paying for Meds: Decline to Answer Currently Unemployed: Decline to Answer Education: Decline to Answer Difficulty w/ Childcare or Family Care: Decline to Answer Living arrangements: other Additional living arrangements comments: boyfriend Occupation/Education: occupation Additional occupation/education comments: nurse Gender identity (if verbalized by the patient): Female Sexual Orientation (if Verbalized by the Patient): Straight or Heterosexual Exam 2 Const: General: no acute distress and alert Nutritional Appearance: well nourished Orientation/consciousness: patient oriented x3 HENMT: Head: normal to inspection Eyes: EOM: EOMs intact bilaterally Resp: Effort & Inspection: normal respiratory effort Auscultation: clear to auscultation bilaterally Cardio: Rate: tachycardic Rhythm: regular rhythm Heart sounds: no murmurs GI: GI Palp: Yes Soft to palpation, No Tenderness to palpation present (GI) and No Guarding due to palpation present (GI) Auscultation: normal bowel sounds Skin: General skin exam: normal color Rashes: no rashes Neuro: General: patient oriented x3, moves all extremities and CN's II-XI intact bilaterally Extrem: General: normal to inspection Psych: Mental Status: mental status grossly normal Affect: normal affect Attitude: cooperative Course Reevaluation(s) Reevaluation #1: Patient states she feels fine. Her heart rates has been down to the 90s. I discussed labs shows potassium 3.0 so she was given potassium chloride and magnesium sulfate 4 g for low magnesium 1.5. Date: 08/11/25 Time: 12:26 Consultations CATERPILLAR TRACTOR OPERATOR: Time of Consult: 12:25 I have discussed the care of this patient with the following provider: Dr. Suarez. He will prescribe her metoprolol Vital Signs Vital signs: Vital Signs Pulse Rate 141 H 08/11/25 09:55 Respiratory Rate 14 08/11/25 09:55 Blood Pressure 139/95 H 08/11/25 09:55 Pulse Oximetry 100 08/11/25 09:55 Oxygen Delivery Room Air 08/11/25 09:55 Pulse Rate 111 H 08/11/25 12:01 Respiratory Rate 16 12/08/25 12:01 Blood Pressure 109/80 08/11/25 12:01 Pulse Oximetry 100 08/11/25 12:01 Oxygen Delivery Room Air 08/11/25 09:55 [facility] Narrative Medical decision making narrative: Patient has history of tachycardia. She is relative asymptomatic. I ordered labs and IV fluids for hydration. EKG appears to be sinus tachycardia and not SVT. My suspicious for PE are low at this time. Labs shows hypokalemia and hypomagnesium so she was given potassium chloride 40 mQ PO and 4 g magnesium sulfate IV. Her Heart rate did increase to the 90s. Patient requested another liter of fluid so she was given 2nd bolus. I notified Dr. Suarez her OB and he will follow up with her. I also reviewed her urine shows bacteria , LE + and wbc. PAtient is not having symptoms of UTI so will hold off on started antibiotics at this time after discussion with Dr. Suarez Differential Diagnosis Differential Diagnosis: SVT, dehydration, anemia, electrolyte abnormalities, PE, arrhythmia Medical Records I have reviewed the following patient records and this information was taken into consideration when formulating the assessment and plan.: previous labs Lab Data [facility] Lab Attestation statement: I personally reviewed the patient's lab results. 08/11/25 10:01 08/11/25 10:01 Labs: Lab Results 08/11/25 08/11/25 08/11/25 Range/Units 10:01 10:01 10:48 WBC 10.2 H (4.5-10.0) K/mm3 RBC 4.28 (4.2-5.4) M/mm3 Hgb 12.3 (12.0-15.0) g/dL Hct 37.4 (37.0-47.0) % MCV 87.4 (80-100) fl MCH 28.7 (26-34) pg MCHC 32.9 (32-36) g/dl RDW 14.0 (11.5-14.5) % Plt Count 263 (150-375) k/mm3 MPV 9.9 (7.4-10.4) fl Immature Gran % (Auto) 0.7 H (0-0.5) % Neut % (Auto) 65.7 (45.5-73.1) % Lymph % (Auto) 24.3 (18.3-44.2) % Kidder % (Auto) 6.8 (2.6-8.5) % Eos % (Auto) 2.1 (0-4.4) % Baso % (Auto) 0.4 (0.2-1.2) % Lymph # (Auto) 2.49 (0.9-3.2) K/mm3 Kidder # (Auto) 0.7 H (0.1-0.6) K/mm3 Eos # (Auto) 0.2 (0-0.3) K/mm3 Baso # (Auto) 0.0 (0.0-0.1) K/mm3 Abs Immat Gran (auto) 0.07 H (0.00-0.031) K/mm3 Absolute Neuts (auto) 6.7 (1.3-6.7) K/mm3 Absolute Nucleated RBC 0.000 (0.0-0.012) K/mm3 Nucleated RBC % 0.0 (0.0-0.2) % PT 13.1 (11.1-14.7) Seconds INR 1.0 APTT Cancelled 24.2 Sodium 134 L (137-145) mmol/L Potassium 3.0 L (3.4-5.0) mmol/L Chloride 107 (98-107) mmol/L Carbon Dioxide 20 L (22-30) mmol/L Anion Gap 7 (4-12) mmol/L BUN 9 (7-17) mg/dL Creatinine 0.64 L (0.7-1.0) mg/dL Estim Creat Clear Calc 116 ml/min Estimated GFR > 60 (59 - ) Glucose 103 (65-110) mg/dL Calcium 9.1 (8.4-10.2) mg/dL Magnesium 1.5 L (1.6-2.3) mg/dL Total Bilirubin 0.3 (0.2-1.3) mg/dL AST 34 (14-36) U/L ALT 31 (6-35) U/L Alkaline Phosphatase 61 (38-126) U/L Total Protein 7.2 (6.3-8.2) g/dL Albumin 3.9 (3.5-5.1) g/dL TSH (Reflex) 2.760 (0.465-4.68) uIU/mL Urine Color Yellow (Yellow) Urine Appearance Clear (Clear) Urine pH 6.5 (5.0-9.0) Ur Specific [place] 1.009 (1.001-1.035) Urine Protein Negative (Negative) mg/dL Urine Glucose (UA) Negative (Negative) mg/dL Urine Ketones Negative (Negative) mg/dL Ur Blood (Man) Negative (Negative) Urine Nitrate Negative (Negative) Urine Bilirubin Negative (Negative) Urine Urobilinogen 0.2 (<2.0) mg/dL Add Ur Microanalysis Reviewed Leukocyte Esterase Rfl Trace H (Negative) RICK/UL Urine RBC 0-2 (0-2) /hpf Urine WBC 11-20 H (0-3) /hpf Ur Squamous Epith Cells Few (Few) /hpf Urine Bacteria 3+ H /hpf Urine Casts 0-2 ECG Data EKG #1: Attestation: I personally reviewed and interpreted this ECG as follows: ECG completion date: 08/11/25 ECG completion time: 09:40 tachycardia (169), sinus rhythm, NL axis and no acute changes Discharge Plan Discharge Clinical Impression: Sinus tachycardia, Hypokalemia, Hypomagnesemia Patient Disposition: Home Condition: Improved Instructions: Antibiotic Form, Hypokalemia (ED), Tachycardia (ED) Additional Instructions: I Recommend that you follow up with your hospice music therapy. Dr. Suarez is going to prescribe metoprolol Patient Language: Citizen Of [place] Prescriptions: No Action famotidine 20 mg tablet 20 mg PO DAILY aspirin 81 mg tablet 81 mg PO DAILY sertraline 50 mg tablet 100 mg PO Classic 28 mg iron- 800 mcg tablet PO mupirocin [Centany] 2 % ointment 1 applic topical BID Qty: 44 3RF Rx Instructions: Intranasal metoprolol succinate 25 mg tablet extended release 24 hr 25 mg PO DAILY Qty: 90 1RF Follow-up/Referrals: Dez,MD Keren [Primary Care Provider, Family Practice] Terrell Suarez MD [Physician, CATERPILLAR TRACTOR OPERATOR]
== END 2025-08-11 13:38 | disposition home or self-care (01) ==
PROVIDERS: Emergency Provider General Practice; PCP Family Medicine
DX: O99.282 Endocrine, nutritional and metabolic diseases complicating pregnancy, second trimester (principal); R00.0 Tachycardia, unspecified; E87.6 Hypokalemia; E83.42 Hypomagnesemia; Z3A.21 21 weeks gestation of pregnancy
CPT/HCPCS: 36415; 80053; 81001; 83735; 84443; 85025; 85610; 85730; 87086; 93005; 96361; 96365; 99284; A9270; J3475; J7120